=== PATIENT | female | born 1965 | race African-American/Black ===

== ENCOUNTER → 2018-06-16 | Outpatient (CLI) | payer OTHER | END | disposition home or self-care (01) | LOC: CFH 10:27 | PROVIDERS: ATTEND Nurse Practitioner Family | DX: Z12.31 Encounter for screening mammogram for malignant neoplasm of breast (principal) | CPT/HCPCS: 77063; 77067 ==

== ENCOUNTER → 2019-07-28 | Outpatient (CLI) | payer OTHER | END | disposition home or self-care (01) | LOC: CFH 08:34 | PROVIDERS: ATTEND Nurse Practitioner Family | DX: Z12.31 Encounter for screening mammogram for malignant neoplasm of breast (principal) | CPT/HCPCS: 77063; 77067 ==

== ENCOUNTER 2020-01-21 06:48 | Inpatient (IN) | payer OTHER ==
[~2020-01-21] VITALS: Ht 160 cm; Wt 61.2 kg
--- NOTE | 2020-01-21 07:22 | NUR ---
CATERING ASSOCIATE: PT TO ROOM FROM LOBBY VIA WHEELCHAIR AT THIS TIME.
--- NOTE | 2020-01-21 07:35 | NUR ---
FIRST CONTACT WITH PT. PT CAME IN CO PERIUMBICAL PAIN THAT HURTS WORSE WHEN SHE BEARS DOWN FOR A BM. THIS PAIN HAS BEEN GOING ON FOR 4 WEEKS. PT DENIES ANY OTHER SX. PCP HAS A CT SCAN SCHEDULED ON THE . PT'S AOX4. RESPS EVEN AND UNLABORED. BP/SPO2 MONITORS IN PLACE. CALL LIGHT WITHIN REACH,
--- NOTE | 2020-01-21 07:52 | NUR ---
PA AT BEDSIDE TO EVALUATE AT THIS TIME.
[2020-01-21] MEDS ORDERED: SODIUM CHLORIDE 0.9% 1,000ML IVBOLUS ONE (08:00)
[2020-01-21] MEDS ORDERED: ONDANSETRON 2MG/ML, 2ML IVPush ONE (08:00)
[2020-01-21] MEDS ORDERED: SODIUM CHLORIDE FLUSH 10ML SYR IVF ONE (08:00)
--- NOTE | 2020-01-21 08:07 | NUR ---
PT AMB TO BR WITH STEADY GAIT. URINE CUP GIVEN.
[2020-01-21] MEDS ORDERED: MORPHINE SULFATE 4 MG/ML, 1ML ONE ×2 (08:08→12:22)
[2020-01-21] MEDS ORDERED: ONDANSETRON 2MG/ML, 2ML ONE (08:08)
--- NOTE | 2020-01-21 08:12 | NUR ---
PT BACK TO ROOM WITH STEADY GAIT FROM BR.
[2020-01-21] MEDS: MORPHINE SULFATE 4 MG/ML, 1ML IVPush PRN ×2 (08:22→12:25)
--- NOTE | 2020-01-21 08:27 | NUR ---
PT MEDICATED PER EMAR. NS INFUSING AT THIS TIME. PT TOLERATED WELL.
--- NOTE | 2020-01-21 08:31 | NUR ---
URINE COLLECTED AND UA SENT.
[2020-01-21 08:33] LABS: BASOPHILS # (AUTO) 0.03 x10^3/uL (0-0.1); BASOPHILS % (AUTO) 0 % (0-1); EOSINOPHILS # (AUTO) 0.03 x10^3/uL (0-0.4); EOSINOPHILS % (AUTO) 0 % (1-7); LYMPHOCYTES # (AUTO) 0.77 x10^3/uL (1-3.4); LYMPHOCYTES % (AUTO) 6 % (22-44); MD NO; MEAN CORPUSCULAR HEMOGLOBIN 29.9 pg (27.0-34.8); MEAN CORPUSCULAR HGB CONC 32.7 g/dL (32.4-35.8); MEAN CORPUSCULAR VOLUME 91.4 fL (80-100); MEAN PLATELET VOLUME 6.3 fL (7.4-10.4); MONOCYTES # (AUTO) 0.83 x10^3/uL (0.2-0.8); MONOCYTES % (AUTO) 6 % (2-9); NEUTROPHILS # (AUTO) 11.28 x10^3/uL (1.8-6.8); NEUTROPHILS % (AUTO) 87 % (42-75); PLATELET COUNT 485 x10^3/uL (130-400); RED BLOOD COUNT 4.54 x10^6/uL (3.82-5.3); RED CELL DISTRIBUTION WIDTH 13.4 % (9.6-15.2)
[2020-01-21 08:39] LABS: ALANINE AMINOTRANSFERASE 24 U/L (12-78); ALBUMIN 3.4 g/dL (3.4-5.0); ANION GAP 6 mmol/L (5-15); CHLORIDE 91 mmol/L (98-107)
[2020-01-21 08:42] LABS: ALKALINE PHOSPHATASE 113 U/L (45-117); BILIRUBIN,TOTAL 0.5 mg/dL (0.2-1.0); CREATININE 1.23 mg/dL (0.55-1.02); TOTAL PROTEIN 8.6 g/dL (6.4-8.2)
[2020-01-21 08:43] LABS: MICROSCOPIC INDICATED
--- NOTE | 2020-01-21 08:57 | NUR ---
PT SLEEPING IN [facility]. RESPS EVEN AND UNLABORED. BP/SPO2 MONITORS IN PLACE. CALL LIGHT WITHIN REACH.
--- NOTE | 2020-01-21 09:17 | NUR ---
PT BACK TO ROOM FROM CT AT THIS TIME.
[2020-01-21] MEDS ORDERED: OMNIPAQUE 350 MG/ML, 100ML BOTTLE ONE (09:25)
[2020-01-21] MEDS ORDERED: LEVO112T2 PO (09:50)
[2020-01-21] MEDS ORDERED: TELM1TAB26 PO (09:52)
[2020-01-21] MEDS ORDERED: PRAV40TA2 PO (09:52)
[2020-01-21] MEDS ORDERED: LEVE500T22 PO (09:52)
[2020-01-21] MEDS ORDERED: CARB200T4 PO (09:53)
--- NOTE | 2020-01-21 09:53 | NUR ---
pt amb to br with steady gait.
--- NOTE | 2020-01-21 10:00 | NUR ---
PT BACK TO ROOM FROM WITH STEADY GAIT. WARM BLANKET GIVEN PER REQUEST.
--- NOTE | 2020-01-21 10:47 | NUR ---
PT SLEEPING IN [facility]. RESPS EVEN AND UNLABORED. BP/SPO2 MONITORS IN PLACE. CALL LIGHT WITHIN REACH.
[2020-01-21] MEDS ORDERED: DOCUSATE 100 MG CAPSULE PO PRN (11:30)
[2020-01-21] MEDS ORDERED: ACETAMINOPHEN 325 MG TABLET PO PRN (11:30)
[2020-01-21] MEDS ORDERED: morphine SULFATE 10 MG/ML, 1ML IVPush PRN (11:30)
[2020-01-21] MEDS ORDERED: ONDANSETRON ODT 4 MG PO PRN (11:30)
[2020-01-21] MEDS ORDERED: hydrALAzine 20 MG/ML, 1ML IVPush PRN (11:30)
[2020-01-21] MEDS ORDERED: BISACODYL 10 MG SUPP PR PRN (11:30)
[2020-01-21] MEDS ORDERED: POLYETHYLENE GLYCOL 17 GM PACKET PO PRN (11:30)
--- NOTE | 2020-01-21 11:32 | NUR ---
THIS RN CALLED FOR REPORT BUT NO ANSWER AT THIS TIME.
--- NOTE | 2020-01-21 11:45 | NUR ---
REPORT GIVEN TO CHRISTIANA CELESTIN. ALL QUESTIONS ANSWERED.
--- NOTE | 2020-01-21 12:40 | NUR ---
BREAK RN NOTE: PT ASSISTED TO BATHROOM TO VOID, BACK IN BED, ATTACHED TO BP AND SPO2 MONITORS. CALL LIGHT IN REACH. PT REPORTS 8/10 ABD PAIN, MEDICATED PER EMAR, TOLERATED WELL. RESPS EVEN AND UNLABORED, SPO2 98-99% ON ROOM AIR. PT REPORTS RELIEF OF PAIN. PT AWAITING TRANSPORT TO MEDICAL FLOOR AT THIS TIME.
[2020-01-21 13:40] VITALS: BP 119/74
[2020-01-21] MEDS: SODIUM CHLORIDE 0.9% 1,000 ML IV SCH ×2 (14:54→21:43)
[2020-01-21] MEDS: CARBAMAZEPINE 200 MG TABLET PO SCH ×3 (14:54→21:40)
[2020-01-21] MEDS: ONDANSETRON 2MG/ML, 2ML IVPush PRN ×2 (15:04→21:39)
[2020-01-21 16:11] LABS: HCT (SEDRATE) 37.9 % (34.6-47.8)
[2020-01-21 16:12] LABS: ANION GAP 12 mmol/L (5-15); CALCIUM 8.6 mg/dL (8.5-10.1); CHLORIDE 97 mmol/L (98-107); CREATININE 0.97 mg/dL (0.55-1.02)
[2020-01-21 16:19] LABS: C-REACTIVE PROTEIN, QUANT 9.7 mg/dL (0.02-0.49)
[2020-01-21 19:01] VITALS: BP 124/82
[2020-01-21] MEDS: LEVETIRACETAM 500 MG TABLET PO SCH ×2 (20:01→21:40)
[2020-01-22] VITALS (10 sets, daily range): BP systolic 116–138; BP diastolic 72–88
[2020-01-22 05:32] LABS: BASOPHILS # (AUTO) 0.02 x10^3/uL (0-0.1); BASOPHILS % (AUTO) 0 % (0-1); EOSINOPHILS # (AUTO) 0.06 x10^3/uL (0-0.4); EOSINOPHILS % (AUTO) 1 % (1-7); LYMPHOCYTES # (AUTO) 0.83 x10^3/uL (1-3.4); LYMPHOCYTES % (AUTO) 7 % (22-44); MD NO; MEAN CORPUSCULAR HEMOGLOBIN 29.9 pg (27.0-34.8); MEAN CORPUSCULAR HGB CONC 32.7 g/dL (32.4-35.8); MEAN CORPUSCULAR VOLUME 91.5 fL (80-100); MEAN PLATELET VOLUME 6.4 fL (7.4-10.4); MONOCYTES # (AUTO) 1.02 x10^3/uL (0.2-0.8); MONOCYTES % (AUTO) 9 % (2-9); NEUTROPHILS # (AUTO) 9.32 x10^3/uL (1.8-6.8); NEUTROPHILS % (AUTO) 83 % (42-75); PLATELET COUNT 457 x10^3/uL (130-400); RED BLOOD COUNT 4.08 x10^6/uL (3.82-5.3); RED CELL DISTRIBUTION WIDTH 13.5 % (9.6-15.2)
[2020-01-22] MEDS: LEVOTHYROXINE 112 MCG TABLET PO SCH (05:33)
[2020-01-22 05:45] LABS: ALBUMIN 2.5 g/dL (3.4-5.0); ANION GAP 7 mmol/L (5-15); CHLORIDE 101 mmol/L (98-107)
[2020-01-22 05:50] LABS: ALANINE AMINOTRANSFERASE 17 U/L (12-78); ALKALINE PHOSPHATASE 89 U/L (45-117); BILIRUBIN,TOTAL 0.4 mg/dL (0.2-1.0); CREATININE 0.99 mg/dL (0.55-1.02); TOTAL PROTEIN 6.6 g/dL (6.4-8.2)
[2020-01-22] MEDS ORDERED: PANTOPRAZOLE 40 MG IV IVPush SCH (07:30)
[2020-01-22] MEDS ORDERED: CHLORHEXIDINE 15 ML UDC ONE (07:44)
[2020-01-22] MEDS: SODIUM CHLORIDE 0.9% 1,000 ML IV SCH ×2 (07:44→21:22)
[2020-01-22] MEDS ORDERED: PROPOFOL 10 MG/ML, 20ML ONE (09:25)
[2020-01-22] MEDS: LEVETIRACETAM 500 MG TABLET PO SCH ×2 (10:29→21:22)
[2020-01-22] MEDS: CARBAMAZEPINE 200 MG TABLET PO SCH ×3 (10:29→21:22)
[2020-01-22] MEDS: OXYcodone IR 5MG TABLET PO PRN ×3 (10:30→21:21)
[2020-01-22] MEDS: SUCRALFATE 1 GM TABLET PO SCH ×2 (11:54→21:22)
[2020-01-22] MEDS: OMEPRAZOLE 20 MG CAPSULE.DR PO SCH (16:00)
[2020-01-22] MEDS ORDERED: GOLYTELY 4,000ML ORAL.SOL PO ONE (16:00)
[2020-01-23 01:25] VITALS: BP 128/84
[2020-01-23] MEDS: OMEPRAZOLE 20 MG CAPSULE.DR PO SCH ×2 (04:33→16:00)
[2020-01-23] MEDS: LEVOTHYROXINE 112 MCG TABLET PO SCH (04:33)
[2020-01-23 06:04] LABS: BASOPHILS # (AUTO) 0.04 x10^3/uL (0-0.1); BASOPHILS % (AUTO) 0 % (0-1); EOSINOPHILS # (AUTO) 0.04 x10^3/uL (0-0.4); EOSINOPHILS % (AUTO) 0 % (1-7); LYMPHOCYTES # (AUTO) 0.99 x10^3/uL (1-3.4); LYMPHOCYTES % (AUTO) 9 % (22-44); MD NO; MEAN CORPUSCULAR HEMOGLOBIN 29.6 pg (27.0-34.8); MEAN CORPUSCULAR HGB CONC 32.7 g/dL (32.4-35.8); MEAN CORPUSCULAR VOLUME 90.8 fL (80-100); MEAN PLATELET VOLUME 7.1 fL (7.4-10.4); MONOCYTES # (AUTO) 0.83 x10^3/uL (0.2-0.8); MONOCYTES % (AUTO) 7 % (2-9); NEUTROPHILS # (AUTO) 9.69 x10^3/uL (1.8-6.8); NEUTROPHILS % (AUTO) 84 % (42-75); PLATELET COUNT 458 x10^3/uL (130-400); RED BLOOD COUNT 4.07 x10^6/uL (3.82-5.3); RED CELL DISTRIBUTION WIDTH 13.5 % (9.6-15.2)
[2020-01-23 06:12] LABS: ANION GAP 10 mmol/L (5-15); CALCIUM 7.9 mg/dL (8.5-10.1); CHLORIDE 103 mmol/L (98-107)
[2020-01-23 06:14] LABS: CREATININE 0.85 mg/dL (0.55-1.02)
[2020-01-23 06:34] VITALS: BP 116/53
[2020-01-23] MEDS ORDERED: CHLORHEXIDINE 15 ML UDC ONE (09:07)
[2020-01-23] MEDS ORDERED: CHLORHEXIDINE 15 ML UDC MM STA (09:09)
[2020-01-23] MEDS ORDERED: PROPOFOL 10 MG/ML, 20ML ONE (09:38)
[2020-01-23] MEDS ORDERED: ACETAMINOPHEN 325 MG TABLET PO PRN (10:00)
[2020-01-23] MEDS ORDERED: ONDANSETRON 2MG/ML, 2ML IVPush PRN (10:00)
[2020-01-23] MEDS: SUCRALFATE 1 GM TABLET PO SCH ×2 (11:32→20:49)
[2020-01-23] MEDS: LEVETIRACETAM 500 MG TABLET PO SCH ×2 (11:32→20:49)
[2020-01-23] MEDS: CARBAMAZEPINE 200 MG TABLET PO SCH ×3 (11:33→20:49)
[2020-01-23] MEDS: OXYcodone IR 5MG TABLET PO PRN ×2 (11:36→16:18)
[2020-01-23 12:09] VITALS: BP 137/87
[2020-01-23] MEDS: ONDANSETRON 2MG/ML, 2ML IVPush PRN (12:32)
[2020-01-23] MEDS: SODIUM CHLORIDE 0.9% 1,000 ML IV SCH (16:15)
[2020-01-23 19:12] VITALS: BP 120/73
[2020-01-24 00:54] VITALS: BP 117/74
[2020-01-24] MEDS: LEVOTHYROXINE 112 MCG TABLET PO SCH (05:52)
[2020-01-24] MEDS: OMEPRAZOLE 20 MG CAPSULE.DR PO SCH ×2 (05:52→16:00)
[2020-01-24] MEDS: SODIUM CHLORIDE 0.9% 1,000 ML IV SCH (05:57)
[2020-01-24 06:03] LABS: BASOPHILS # (AUTO) 0.02 x10^3/uL (0-0.1); BASOPHILS % (AUTO) 0 % (0-1); EOSINOPHILS # (AUTO) 0.17 x10^3/uL (0-0.4); EOSINOPHILS % (AUTO) 2 % (1-7); LYMPHOCYTES # (AUTO) 1.04 x10^3/uL (1-3.4); LYMPHOCYTES % (AUTO) 9 % (22-44); MD NO; MEAN CORPUSCULAR HEMOGLOBIN 29.7 pg (27.0-34.8); MEAN CORPUSCULAR HGB CONC 32.7 g/dL (32.4-35.8); MEAN CORPUSCULAR VOLUME 90.8 fL (80-100); MEAN PLATELET VOLUME 6.9 fL (7.4-10.4); MONOCYTES # (AUTO) 0.86 x10^3/uL (0.2-0.8); MONOCYTES % (AUTO) 8 % (2-9); NEUTROPHILS # (AUTO) 9.07 x10^3/uL (1.8-6.8); NEUTROPHILS % (AUTO) 81 % (42-75); PLATELET COUNT 450 x10^3/uL (130-400); RED BLOOD COUNT 3.79 x10^6/uL (3.82-5.3); RED CELL DISTRIBUTION WIDTH 13.6 % (9.6-15.2)
[2020-01-24 06:12] LABS: ALBUMIN 2.2 g/dL (3.4-5.0); ANION GAP 6 mmol/L (5-15); CALCIUM 7.8 mg/dL (8.5-10.1); CHLORIDE 105 mmol/L (98-107)
[2020-01-24 06:17] LABS: ALANINE AMINOTRANSFERASE 15 U/L (12-78); ALKALINE PHOSPHATASE 83 U/L (45-117); BILIRUBIN,TOTAL 0.5 mg/dL (0.2-1.0); CREATININE 0.91 mg/dL (0.55-1.02); TOTAL PROTEIN 6.2 g/dL (6.4-8.2)
[2020-01-24 07:42] VITALS: BP 112/73
[2020-01-24] MEDS: SUCRALFATE 1 GM TABLET PO SCH (09:49)
[2020-01-24] MEDS: LEVETIRACETAM 500 MG TABLET PO SCH (09:49)
[2020-01-24] MEDS: CARBAMAZEPINE 200 MG TABLET PO SCH ×2 (09:49→17:30)
[2020-01-24 12:06] VITALS: BP 134/82
[2020-01-24] MEDS ORDERED: OXYC5TAB3 PO (15:55)
[2020-01-24] MEDS ORDERED: DOCU100C33 PO (15:55)
[2020-01-24] MEDS ORDERED: SUCR1TAB33 PO (15:55)
[2020-01-24] MEDS ORDERED: SIME125T PO (15:55)
[2020-01-24] MEDS ORDERED: OMEP-110 PO (15:55)
[2020-01-24] MEDS ORDERED: SIMETHICONE 125 MG CHEW TAB PO SCH (16:00)
[2020-01-24] MEDS ORDERED: DOCUSATE 100 MG CAPSULE PO SCH (21:00)
== END 2020-01-24 18:53 | disposition home or self-care (01) | DRG 391 ==
LOC: ED 07:34 → EDIP 10:39 → 3N 11:30
PROVIDERS: ADMIT Internal Medicine Infectious Disease; ATTEND Internal Medicine Infectious Disease
PROC: 0DJ08ZZ Inspection of Upper Intestinal Tract, Via Natural or Artificial Opening Endoscopic (ICD-10-PCS; principal; 2020-01-22 09:00)
PROC: 0DJD8ZZ Inspection of Lower Intestinal Tract, Via Natural or Artificial Opening Endoscopic (ICD-10-PCS; 2020-01-23)
DX: R10.9 Unspecified abdominal pain (principal); N17.0 Acute kidney failure with tubular necrosis; E87.1 Hypo-osmolality and hyponatremia; K20.9 Esophagitis, unspecified; G40.909 Epilepsy, unspecified, not intractable, without status epilepticus; I10 Essential (primary) hypertension; E86.0 Dehydration; R13.10 Dysphagia, unspecified; D18.09 Hemangioma of other sites; K44.9 Diaphragmatic hernia without obstruction or gangrene; D72.829 Elevated white blood cell count, unspecified; E78.5 Hyperlipidemia, unspecified; E03.9 Hypothyroidism, unspecified; Z90.49 Acquired absence of other specified parts of digestive tract; Z90.89 Acquired absence of other organs; Z90.710 Acquired absence of both cervix and uterus; Z88.0 Allergy status to penicillin; Z80.7 Family history of other malignant neoplasms of lymphoid, hematopoietic and related tissues; Z80.0 Family history of malignant neoplasm of digestive organs; Q63.1 Lobulated, fused and horseshoe kidney
CPT/HCPCS: 36415; 71046; 74018; 74177; 76830; 80048; 80053; 81001; 82378; 83605; 83690; 83735; 84100; 84145; 84443; 85025; 85651; 86140; 86301; 87491; 87591; 87635; 96361; 96374; G0378; J2405; J2704; Q9967; J2270; J7030

== ENCOUNTER 2020-01-28 07:10 | Inpatient (IN) | payer OTHER ==
[~2020-01-28] VITALS: Ht 160 cm; Wt 56.5 kg
[~2020-01-28 07:10] MED LIST: CARB200T4 PO; DOCU100C33 PO; LEVE500T22 PO; LEVO112T2 PO; OMEP-110 PO; OXYC5TAB3 PO; PRAV40TA2 PO; SIME125T PO; SUCR1TAB33 PO; TELM1TAB26 PO
[2020-01-28] MEDS ORDERED: DICYCLOMINE 20 MG TABLET ONE (07:42)
[2020-01-28] MEDS ORDERED: MAALOX/HYOSCYAMINE/LIDOCAINE 45 ML BTL ONE (07:42)
[2020-01-28] MEDS ORDERED: DICYCLOMINE 20 MG TABLET PO ONE (08:00)
[2020-01-28] MEDS ORDERED: MAALOX/HYOSCYAMINE/LIDOCAINE 45 ML BTL PO ONE (08:00)
--- NOTE | 2020-01-28 08:12 | NUR ---
SEEN 01/20 AND ADDMITTED. CO ALL OVER ABD PAIN AND BLOATING TODAY. NAUSEA. DENIES VOM / DIARRHEA. PATIENT STATES "ITS LIKE PUSS COMING OUT WHEN I POOP, I TOOK PICTURES SO THE DOCTOR CAN SEE IT" DENIES BLOOD IN STOOL. PATIENT IN BED, CALL LIGHT IN REACH, SIDE RAILS UP X2. WENT OVER PLAN OF CARE FROM ORDER LIST, AGREES TO POC. REPORTS FEELING BETTER ATER PO MEDS
[2020-01-28 08:20] LABS: BASOPHILS # (AUTO) 0.01 x10^3/uL (0-0.1); BASOPHILS % (AUTO) 0 % (0-1); EOSINOPHILS # (AUTO) 0.08 x10^3/uL (0-0.4); EOSINOPHILS % (AUTO) 1 % (1-7); LYMPHOCYTES # (AUTO) 0.73 x10^3/uL (1-3.4); LYMPHOCYTES % (AUTO) 7 % (22-44); MD NO; MEAN CORPUSCULAR HEMOGLOBIN 29.9 pg (27.0-34.8); MEAN CORPUSCULAR HGB CONC 32.5 g/dL (32.4-35.8); MEAN CORPUSCULAR VOLUME 91.8 fL (80-100); MEAN PLATELET VOLUME 6.6 fL (7.4-10.4); MONOCYTES % (AUTO) 5 % (2-9); NEUTROPHILS # (AUTO) 9.08 x10^3/uL (1.8-6.8); NEUTROPHILS % (AUTO) 87 % (42-75); PLATELET COUNT 560 x10^3/uL (130-400); RED BLOOD COUNT 3.89 x10^6/uL (3.82-5.3); RED CELL DISTRIBUTION WIDTH 13.3 % (9.6-15.2)
--- NOTE | 2020-01-28 08:21 | NUR ---
URINE CUP GIVEN. PATIENT IS SLEEPING IN ROOM.
[2020-01-28 08:32] LABS: ALANINE AMINOTRANSFERASE 23 U/L (12-78); ALBUMIN 2.7 g/dL (3.4-5.0); ANION GAP 5 mmol/L (5-15); CALCIUM 8.5 mg/dL (8.5-10.1); CHLORIDE 103 mmol/L (98-107); CREATININE 1.05 mg/dL (0.55-1.02)
[2020-01-28 08:35] LABS: ALKALINE PHOSPHATASE 78 U/L (45-117); BILIRUBIN,TOTAL 0.2 mg/dL (0.2-1.0); TOTAL PROTEIN 6.8 g/dL (6.4-8.2)
[2020-01-28] MEDS ORDERED: SODIUM CHLORIDE 0.9% 1,000 ML IV ONE (08:43)
[2020-01-28] MEDS ORDERED: ONDANSETRON 2MG/ML, 2ML ONE (08:58)
[2020-01-28] MEDS ORDERED: MORPHINE SULFATE 4 MG/ML, 1ML ONE (08:59)
[2020-01-28] MEDS ORDERED: SODIUM CHLORIDE FLUSH 10ML SYR IVF ONE (09:00)
[2020-01-28] MEDS ORDERED: ONDANSETRON 2MG/ML, 2ML IVPush ONE (09:00)
[2020-01-28] MEDS ORDERED: MORPHINE SULFATE 4 MG/ML, 1ML IVPush PRN (09:00)
[2020-01-28 09:29] LABS: MICROSCOPIC NOT IND
[2020-01-28 10:20] LABS: HCT (SEDRATE) 35.7 % (34.6-47.8)
--- NOTE | 2020-01-28 10:27 | NUR ---
pt back from ct, ambulated to restroom with assistance
[2020-01-28] MEDS ORDERED: OMNIPAQUE 350 MG/ML, 100ML BOTTLE ONE (10:37)
[2020-01-28] MEDS ORDERED: LABETALOL 5MG/ML, 20ML IVPush PRN (12:00)
[2020-01-28] MEDS ORDERED: TEMAZEPAM 15 MG CAPSULE PO PRN (12:00)
[2020-01-28] MEDS ORDERED: morphine SULFATE 10 MG/ML, 1ML IVPush PRN (12:00)
[2020-01-28] MEDS ORDERED: ACETAMINOPHEN 325 MG TABLET PO PRN (12:00)
[2020-01-28] MEDS ORDERED: ONDANSETRON ODT 4 MG PO PRN (12:00)
[2020-01-28] MEDS ORDERED: ENALAPRILAT 1.25 MG/ML, 2ML IVPush PRN (12:00)
[2020-01-28 12:14] VITALS: BP 184/119
[2020-01-28] MEDS: HYDROCHLOROTHIAZIDE 25 MG TABLET PO SCH (13:11)
[2020-01-28] MEDS: LOSARTAN 100 MG TAB PO SCH (13:11)
[2020-01-28 13:13] VITALS: BP 184/119
[2020-01-28 14:00] VITALS: BP 138/89
[2020-01-28] MEDS: OMEPRAZOLE 20 MG CAPSULE.DR PO SCH (16:33)
[2020-01-28] MEDS: CARBAMAZEPINE 200 MG TABLET PO SCH ×2 (16:33→20:49)
[2020-01-28] MEDS: HYDROcodone/APAP 5/325 TABLET PO PRN (18:33)
[2020-01-28 19:47] VITALS: BP 135/86
[2020-01-28] MEDS: SUCRALFATE 1 GM TABLET PO SCH (20:49)
[2020-01-28] MEDS: LEVETIRACETAM 500 MG TABLET PO SCH (20:49)
[2020-01-28] MEDS: PRAVASTATIN 40 MG TABLET PO SCH (20:49)
[2020-01-29] MEDS: HYDROcodone/APAP 5/325 TABLET PO PRN ×5 (02:07→21:45)
[2020-01-29 02:39] VITALS: BP 142/87
[2020-01-29] MEDS: LEVOTHYROXINE 112 MCG TABLET PO SCH (05:58)
[2020-01-29] MEDS: CARBAMAZEPINE 200 MG TABLET PO SCH ×4 (05:58→21:15)
[2020-01-29] MEDS: OMEPRAZOLE 20 MG CAPSULE.DR PO SCH ×2 (05:58→16:08)
[2020-01-29 06:56] VITALS: BP 143/88
[2020-01-29 07:35] LABS: BASOPHILS # (AUTO) 0.05 x10^3/uL (0-0.1); BASOPHILS % (AUTO) 1 % (0-1); EOSINOPHILS # (AUTO) 0.16 x10^3/uL (0-0.4); EOSINOPHILS % (AUTO) 1 % (1-7); LYMPHOCYTES # (AUTO) 1.21 x10^3/uL (1-3.4); LYMPHOCYTES % (AUTO) 11 % (22-44); MD NO; MEAN CORPUSCULAR HEMOGLOBIN 29.7 pg (27.0-34.8); MEAN CORPUSCULAR HGB CONC 32.3 g/dL (32.4-35.8); MEAN CORPUSCULAR VOLUME 91.9 fL (80-100); MEAN PLATELET VOLUME 6.5 fL (7.4-10.4); MONOCYTES # (AUTO) 0.78 x10^3/uL (0.2-0.8); MONOCYTES % (AUTO) 7 % (2-9); NEUTROPHILS # (AUTO) 9.09 x10^3/uL (1.8-6.8); NEUTROPHILS % (AUTO) 81 % (42-75); PLATELET COUNT 551 x10^3/uL (130-400); RED BLOOD COUNT 3.93 x10^6/uL (3.82-5.3); RED CELL DISTRIBUTION WIDTH 13.7 % (9.6-15.2)
[2020-01-29 07:45] LABS: ALANINE AMINOTRANSFERASE 22 U/L (12-78); ALBUMIN 2.5 g/dL (3.4-5.0); ANION GAP 7 mmol/L (5-15); CALCIUM 8.4 mg/dL (8.5-10.1); CHLORIDE 99 mmol/L (98-107); CREATININE 0.99 mg/dL (0.55-1.02)
[2020-01-29 07:48] LABS: ALKALINE PHOSPHATASE 76 U/L (45-117); BILIRUBIN,TOTAL 0.2 mg/dL (0.2-1.0); TOTAL PROTEIN 6.6 g/dL (6.4-8.2)
[2020-01-29] MEDS: LOSARTAN 100 MG TAB PO SCH (08:20)
[2020-01-29] MEDS: SUCRALFATE 1 GM TABLET PO SCH ×2 (08:20→21:15)
[2020-01-29] MEDS: SENNA/DOCUSATE TABLET PO SCH (08:20)
[2020-01-29] MEDS: LEVETIRACETAM 500 MG TABLET PO SCH ×2 (08:20→21:15)
[2020-01-29] MEDS: HYDROCHLOROTHIAZIDE 25 MG TABLET PO SCH (08:20)
[2020-01-29] MEDS: ONDANSETRON 2MG/ML, 2ML IVPush PRN ×2 (08:21→20:59)
[2020-01-29] MEDS ORDERED: OMNIPAQUE 350 MG/ML, 75ML BOTTLE ONE (10:55)
[2020-01-29 13:05] VITALS: BP 159/106
[2020-01-29 13:50] VITALS: BP 133/80
[2020-01-29 18:55] VITALS: BP 152/93
[2020-01-29] MEDS: PRAVASTATIN 40 MG TABLET PO SCH (21:15)
[2020-01-30 01:57] VITALS: BP 115/75
[2020-01-30 05:23] LABS: BASOPHILS # (AUTO) 0.03 x10^3/uL (0-0.1); BASOPHILS % (AUTO) 0 % (0-1); EOSINOPHILS % (AUTO) 1 % (1-7); LYMPHOCYTES # (AUTO) 1.31 x10^3/uL (1-3.4); LYMPHOCYTES % (AUTO) 12 % (22-44); MD NO; MEAN CORPUSCULAR HEMOGLOBIN 29.6 pg (27.0-34.8); MEAN CORPUSCULAR HGB CONC 32.4 g/dL (32.4-35.8); MEAN CORPUSCULAR VOLUME 91.5 fL (80-100); MONOCYTES # (AUTO) 0.69 x10^3/uL (0.2-0.8); MONOCYTES % (AUTO) 6 % (2-9); NEUTROPHILS # (AUTO) 8.66 x10^3/uL (1.8-6.8); NEUTROPHILS % (AUTO) 80 % (42-75); PLATELET COUNT 532 x10^3/uL (130-400); RED CELL DISTRIBUTION WIDTH 13.8 % (9.6-15.2)
[2020-01-30 05:31] LABS: ALBUMIN 2.4 g/dL (3.4-5.0); ANION GAP 8 mmol/L (5-15); CALCIUM 8.5 mg/dL (8.5-10.1); CHLORIDE 95 mmol/L (98-107)
[2020-01-30 05:36] LABS: ALANINE AMINOTRANSFERASE 19 U/L (12-78); ALKALINE PHOSPHATASE 82 U/L (45-117); BILIRUBIN,TOTAL 0.2 mg/dL (0.2-1.0); CREATININE 1.02 mg/dL (0.55-1.02); TOTAL PROTEIN 6.4 g/dL (6.4-8.2)
[2020-01-30] MEDS: CARBAMAZEPINE 200 MG TABLET PO SCH ×4 (06:00→22:11)
[2020-01-30] MEDS: LEVOTHYROXINE 112 MCG TABLET PO SCH (06:00)
[2020-01-30 07:48] VITALS: BP 147/89
[2020-01-30] MEDS: LOSARTAN 100 MG TAB PO SCH (11:21)
[2020-01-30] MEDS: OMEPRAZOLE 20 MG CAPSULE.DR PO SCH ×2 (11:21→15:32)
[2020-01-30] MEDS: LEVETIRACETAM 500 MG TABLET PO SCH ×2 (11:21→22:10)
[2020-01-30] MEDS: HYDROcodone/APAP 5/325 TABLET PO PRN ×3 (11:22→22:10)
[2020-01-30] MEDS: HYDROCHLOROTHIAZIDE 25 MG TABLET PO SCH (11:22)
[2020-01-30] MEDS: SENNA/DOCUSATE TABLET PO SCH (11:22)
[2020-01-30] MEDS: SUCRALFATE 1 GM TABLET PO SCH ×2 (11:24→22:10)
[2020-01-30 14:01] VITALS: BP 139/88
[2020-01-30] MEDS: POLYETHYLENE GLYCOL 17 GM PACKET PO PRN (15:39)
[2020-01-30 19:20] VITALS: BP 115/74
[2020-01-30] MEDS: ONDANSETRON 2MG/ML, 2ML IVPush PRN (20:40)
[2020-01-30] MEDS: PRAVASTATIN 40 MG TABLET PO SCH (22:11)
[2020-01-31] MEDS: ONDANSETRON 2MG/ML, 2ML IVPush PRN (04:31)
[2020-01-31 04:36] VITALS: BP 115/86
[2020-01-31] MEDS: CARBAMAZEPINE 200 MG TABLET PO SCH ×2 (06:09→12:19)
[2020-01-31] MEDS: OMEPRAZOLE 20 MG CAPSULE.DR PO SCH (06:09)
[2020-01-31] MEDS: LEVOTHYROXINE 112 MCG TABLET PO SCH (06:09)
[2020-01-31 07:21] VITALS: BP 105/64
[2020-01-31] MEDS: POLYETHYLENE GLYCOL 17 GM PACKET PO PRN (08:35)
[2020-01-31] MEDS: LOSARTAN 100 MG TAB PO SCH (08:35)
[2020-01-31] MEDS: HYDROCHLOROTHIAZIDE 25 MG TABLET PO SCH (08:36)
[2020-01-31] MEDS: SUCRALFATE 1 GM TABLET PO SCH (08:36)
[2020-01-31] MEDS: SENNA/DOCUSATE TABLET PO SCH (08:36)
[2020-01-31] MEDS: LEVETIRACETAM 500 MG TABLET PO SCH (08:37)
[2020-01-31] MEDS: HYDROcodone/APAP 5/325 TABLET PO PRN ×2 (08:40→13:49)
[2020-01-31 14:22] VITALS: BP 131/85
[2020-01-31] MEDS ORDERED: ONDA4TAB13 PO (15:30)
[2020-01-31] MEDS ORDERED: BISA10SU54 PR (15:30)
[2020-01-31] MEDS ORDERED: POLY17PO5 PO (15:30)
[2020-01-31] MEDS ORDERED: HYDR-3237 PO (15:30)
== END 2020-01-31 17:35 | disposition home or self-care (01) | DRG 442 ==
LOC: ED 07:38 → EDIP 11:46 → 4NE 11:52 → 3WST 01-29 17:17
PROVIDERS: ADMIT Internal Medicine; ATTEND Internal Medicine
PROC: 0DBU3ZX Excision of Omentum, Percutaneous Approach, Diagnostic (ICD-10-PCS; principal; 2020-01-30)
DX: R16.0 Hepatomegaly, not elsewhere classified (principal); R18.8 Other ascites; K66.9 Disorder of peritoneum, unspecified; E03.9 Hypothyroidism, unspecified; I10 Essential (primary) hypertension; E78.5 Hyperlipidemia, unspecified; G40.909 Epilepsy, unspecified, not intractable, without status epilepticus; K44.9 Diaphragmatic hernia without obstruction or gangrene; K21.9 Gastro-esophageal reflux disease without esophagitis; K20.9 Esophagitis, unspecified; C80.1 Malignant (primary) neoplasm, unspecified; Z90.710 Acquired absence of both cervix and uterus; Z90.49 Acquired absence of other specified parts of digestive tract; Z90.89 Acquired absence of other organs; Z79.899 Other long term (current) drug therapy; Z88.0 Allergy status to penicillin
CPT/HCPCS: 36415; 49180; 71260; 74177; 77012; 80053; 81003; 83690; 85025; 85651; 86140; 86304; 88305; 88341; 88342; 96361; 96374; 96375; 99156; G0378; J2405; Q9967; J2270; J7030

== ENCOUNTER → 2020-03-08 | Outpatient (CLI) | payer OTHER ==
[~2020-03-08] MED LIST changes: +BISA10SU54 PR; +HYDR-3237 PO; +ONDA4TAB13 PO; +POLY17PO5 PO
== END | disposition home or self-care (01) ==
LOC: RAD 12:39
PROVIDERS: ATTEND Internal Medicine
DX: C78.7 Secondary malignant neoplasm of liver and intrahepatic bile duct (principal); C80.1 Malignant (primary) neoplasm, unspecified
CPT/HCPCS: 76700

== ENCOUNTER → 2020-03-22 | Outpatient (CLI) | payer OTHER ==
[~2020-03-22] MED LIST changes: +LIDOCAINE 1%, 10ML ONE
== END | disposition home or self-care (01) ==
LOC: RAD 14:14
PROVIDERS: ATTEND Internal Medicine
DX: R18.0 Malignant ascites (principal); C80.1 Malignant (primary) neoplasm, unspecified
CPT/HCPCS: 49083; J3490

== ENCOUNTER → 2020-03-27 | Outpatient (CLI) | payer OTHER ==
[~2020-03-27] MED LIST changes: -LIDOCAINE 1%, 10ML ONE
== END | disposition home or self-care (01) ==
LOC: RAD 11:56
PROVIDERS: ATTEND Internal Medicine
DX: C80.1 Malignant (primary) neoplasm, unspecified (principal)
CPT/HCPCS: 36573; C1751

== ENCOUNTER 2020-03-30 10:02 | Outpatient (CLI) | payer OTHER ==
[2020-03-30] MEDS ORDERED: LIDOCAINE 1%, 10ML ONE (10:16)
== END 2020-03-30 23:59 | disposition home or self-care (01) ==
LOC: RAD 10:02
PROVIDERS: ATTEND Internal Medicine
DX: C80.1 Malignant (primary) neoplasm, unspecified (principal)
CPT/HCPCS: 49083; J3490

== ENCOUNTER 2020-05-10 16:27 | Inpatient (IN) | payer OTHER ==
[~2020-05-10] VITALS: Ht 160 cm; Wt 54.5 kg
--- NOTE | 2020-05-10 16:39 | NUR ---
PER ONC RN, OK TO USE PICC LINE IN LEFT ARM, D/T LACK OF IV ACCESS. PT LEFT ARM SWOLLEN AND POSSIBLE DVT.
--- NOTE | 2020-05-10 17:05 | NUR ---
EWELINA WANTS LABS DRAWN BY COMMUNICATIONS PROJECT MANAGER, NOT FROM PICC LINE.
[2020-05-10 18:25] LABS: ALBUMIN 1.4 g/dL (3.4-5.0); ANION GAP 8 mmol/L (5-15); CALCIUM 6.7 mg/dL (8.5-10.1); CHLORIDE 107 mmol/L (98-107); INTERNATIONAL NORMALIZED RATIO 1.09 (0.93-1.1); PROTHROMBIN TIME 11.2 Seconds (9.6-11.5)
[2020-05-10 18:29] LABS: ALANINE AMINOTRANSFERASE 13 U/L (12-78); ALKALINE PHOSPHATASE 81 U/L (45-117); BILIRUBIN,TOTAL 0.3 mg/dL (0.2-1.0); CREATININE 0.34 mg/dL (0.55-1.02); TOTAL PROTEIN 4.2 g/dL (6.4-8.2)
--- NOTE | 2020-05-10 18:33 | NUR ---
BREAK RN: PATIENT RESTING ON GURNEY, RESPIRATIONS EVEN AND UNLABORED, [place] AT THIS TIME. CALL LIGHT IN REACH, FAMILY IN ROOM
[2020-05-10 18:39] LABS: MEAN CORPUSCULAR HEMOGLOBIN 30.7 pg (27.0-34.8); MEAN CORPUSCULAR HGB CONC 33.2 g/dL (32.4-35.8); MEAN PLATELET VOLUME 8.3 fL (7.4-10.4); PLATELET COUNT 523 x10^3/uL (130-400); RED BLOOD COUNT 3.06 x10^6/uL (3.82-5.3); RED CELL DISTRIBUTION WIDTH 19.8 % (9.6-15.2)
[2020-05-10] MEDS ORDERED: OMNIPAQUE 350 MG/ML, 100ML BOTTLE ONE (19:04)
[2020-05-10 19:07] LABS: MD YES
[2020-05-10 19:14] LABS: BAND#(MANUAL) 0.43 x10^3/uL; BANDS%(MANUAL) 17 % (0-7); LYMPH#(MANUAL) 0.48 x10^3/uL (1-3.4); LYMPHS% (MANUAL) 19 % (22-44); MONOS#(MANUAL) 0.48 x10^3/uL (0.3-2.7); MONOS% (MANUAL) 19 % (2-9); REACTIVE LYMPHS # (MANUAL) 0.05 x10^3/uL (0-0); REACTIVE LYMPHS % (MANUAL) 2 % (0-0); SEG#(MANUAL) 1.08 x10^3/uL (1.8-6.8); SEGS% (MANUAL) 43 % (42-75)
[2020-05-10 19:15] LABS: POLYCHROMASIA 1+
[2020-05-10 19:16] LABS: PAPPENHEIMER BODIES 1+; TARGET CELLS 1+
[2020-05-10 19:17] LABS: OVALOCYTES 1+
[2020-05-10 19:18] LABS: <PLATELET ESTIMATE> INCREASED; LARGE PLATELETS 1+; SPHEROCYTES 1+
--- NOTE | 2020-05-10 19:36 | NUR ---
ALL RESULTS ARE BACK AT THIS TIME. CHART UP FOR RECHECK.
[2020-05-10] MEDS ORDERED: METOCLOPRAMIDE 5 MG/ML, 2ML IVPush ONE (20:00)
[2020-05-10] MEDS ORDERED: MORPHINE SULFATE 4 MG/ML, 1ML IVPush ONE (20:00)
[2020-05-10] MEDS ORDERED: BENZOCAINE AEROSOL SPRAY 20%, 60ML ONE (20:10)
--- NOTE | 2020-05-10 20:17 | NUR ---
PT AND REFUSE NG TUBE AT THIS TIME, THEY WOULD LIKE TO SPEAK TO HOSPITALIST TO GO OVER ALL OPTIONS. REPORT GIVEN TO MIRA CELESTIN
[2020-05-10] MEDS ORDERED: SODIUM CHLORIDE 0.9% 1,000 ML IV SCH (20:46)
[2020-05-10 21:10] VITALS: BP 100/71
[2020-05-10] MEDS: LEVETIRACETAM 500 MG in SODIUM CHLORIDE 0.9% 100 ML IV SCH (22:20)
[2020-05-10] MEDS: ONDANSETRON 2MG/ML, 2ML IVPush PRN (22:45)
[2020-05-10] MEDS: morphine SULFATE 10 MG/ML, 1ML IVPush PRN (22:46)
[2020-05-10] MEDS: HEPARIN 5,000 UNITS/ML, 1ML SQ SCH (22:46)
[2020-05-10 23:11] LABS: MICROSCOPIC INDICATED
[2020-05-11] MEDS: BISACODYL 10 MG SUPP PR SCH ×2 (00:02→09:00)
[2020-05-11] MEDS: morphine SULFATE 10 MG/ML, 1ML IVPush PRN ×4 (00:28→18:49)
[2020-05-11 01:08] VITALS: BP 112/83
[2020-05-11 06:02] LABS: ANION GAP 6 mmol/L (5-15); CHLORIDE 106 mmol/L (98-107); CREATININE 0.34 mg/dL (0.55-1.02)
[2020-05-11] MEDS: HEPARIN 5,000 UNITS/ML, 1ML SQ SCH ×3 (06:25→22:27)
[2020-05-11] MEDS: ONDANSETRON 2MG/ML, 2ML IVPush PRN ×2 (06:57→18:52)
[2020-05-11 07:14] LABS: MD YES; MEAN CORPUSCULAR HEMOGLOBIN 30.3 pg (27.0-34.8); MEAN CORPUSCULAR HGB CONC 32.3 g/dL (32.4-35.8); MEAN PLATELET VOLUME 8.1 fL (7.4-10.4); PLATELET COUNT 492 x10^3/uL (130-400); RED BLOOD COUNT 3.12 x10^6/uL (3.82-5.3); RED CELL DISTRIBUTION WIDTH 19.9 % (9.6-15.2)
[2020-05-11 07:25] LABS: BAND#(MANUAL) 0.14 x10^3/uL; BANDS%(MANUAL) 9 % (0-7); LYMPH#(MANUAL) 0.39 x10^3/uL (1-3.4); LYMPHS% (MANUAL) 26 % (22-44); MONOS#(MANUAL) 0.18 x10^3/uL (0.3-2.7); MONOS% (MANUAL) 12 % (2-9); REACTIVE LYMPHS # (MANUAL) 0.03 x10^3/uL (0-0); REACTIVE LYMPHS % (MANUAL) 2 % (0-0); SEG#(MANUAL) 0.77 x10^3/uL (1.8-6.8); SEGS% (MANUAL) 51 % (42-75)
[2020-05-11 07:30] LABS: <PLATELET ESTIMATE> INCREASED; ANISOCYTOSIS 1+; BASOPHILLIC STIPPLING 1+; PAPPENHEIMER BODIES 1+; POLYCHROMASIA 1+
[2020-05-11 07:31] LABS: <PLT MORPHOLOGY> NORMAL PLT MORPH
[2020-05-11 07:55] VITALS: BP 101/79
[2020-05-11] MEDS: LEVETIRACETAM 500 MG in SODIUM CHLORIDE 0.9% 100 ML IV SCH ×2 (10:38→22:13)
[2020-05-11] MEDS: D5%-0.45NACL+KCL 20MEQ 1,000 ML IV SCH ×2 (11:37→22:10)
[2020-05-11 14:23] VITALS: BP 107/76
[2020-05-11 18:58] VITALS: BP 113/79
[2020-05-12 00:07] VITALS: BP 95/72
[2020-05-12] MEDS: morphine SULFATE 10 MG/ML, 1ML IVPush PRN ×5 (00:12→22:38)
[2020-05-12] MEDS: ONDANSETRON 2MG/ML, 2ML IVPush PRN ×3 (05:57→18:15)
[2020-05-12] MEDS: HEPARIN 5,000 UNITS/ML, 1ML SQ SCH ×3 (06:05→22:34)
[2020-05-12 06:07] LABS: ALBUMIN 1.3 g/dL (3.4-5.0); ANION GAP 4 mmol/L (5-15); CALCIUM 6.8 mg/dL (8.5-10.1); CHLORIDE 106 mmol/L (98-107)
[2020-05-12 06:10] LABS: ALANINE AMINOTRANSFERASE 13 U/L (12-78); ALKALINE PHOSPHATASE 77 U/L (45-117); BILIRUBIN,TOTAL 0.2 mg/dL (0.2-1.0); CREATININE 0.38 mg/dL (0.55-1.02)
[2020-05-12 06:56] LABS: MEAN CORPUSCULAR HEMOGLOBIN 29.9 pg (27.0-34.8); MEAN CORPUSCULAR HGB CONC 31.6 g/dL (32.4-35.8); MEAN PLATELET VOLUME 8.2 fL (7.4-10.4); PLATELET COUNT 584 x10^3/uL (130-400); RED BLOOD COUNT 2.97 x10^6/uL (3.82-5.3); RED CELL DISTRIBUTION WIDTH 20.3 % (9.6-15.2)
[2020-05-12 07:22] VITALS: BP 96/67
[2020-05-12 07:22] LABS: MD YES
[2020-05-12 07:28] LABS: <PLATELET ESTIMATE> INCREASED; ANISOCYTOSIS 1+; BAND#(MANUAL) 0.04 x10^3/uL; BANDS%(MANUAL) 2 % (0-7); BASOPHILLIC STIPPLING 1+; LYMPH#(MANUAL) 0.46 x10^3/uL (1-3.4); LYMPHS% (MANUAL) 24 % (22-44); MONOS#(MANUAL) 0.34 x10^3/uL (0.3-2.7); MONOS% (MANUAL) 18 % (2-9); PAPPENHEIMER BODIES 1+; POLYCHROMASIA 1+; SEG#(MANUAL) 1.06 x10^3/uL (1.8-6.8); SEGS% (MANUAL) 56 % (42-75)
[2020-05-12 07:29] LABS: <PLT MORPHOLOGY> NORMAL PLT MORPH
[2020-05-12] MEDS ORDERED: MAGNESIUM SULFATE PMX 2GM/50ML 50 ML IV ONE ×2 (07:30→18:00)
[2020-05-12] MEDS: BISACODYL 10 MG SUPP PR SCH ×2 (08:04→15:55)
[2020-05-12] MEDS: LEVETIRACETAM 500 MG in SODIUM CHLORIDE 0.9% 100 ML IV SCH ×2 (10:51→22:23)
[2020-05-12] MEDS: D5%-0.45NACL+KCL 20MEQ 1,000 ML IV SCH (11:51)
[2020-05-12 13:03] VITALS: BP 110/73
[2020-05-12 18:41] VITALS: BP 103/73
[2020-05-13 00:24] VITALS: BP 90/66
[2020-05-13] MEDS: D5%-0.45NACL+KCL 20MEQ 1,000 ML IV SCH ×3 (00:27→22:57)
[2020-05-13 00:48] VITALS: BP 102/75
[2020-05-13] MEDS: ONDANSETRON 2MG/ML, 2ML IVPush PRN ×3 (03:57→18:55)
[2020-05-13] MEDS: morphine SULFATE 10 MG/ML, 1ML IVPush PRN ×4 (03:58→19:54)
[2020-05-13] MEDS: HEPARIN 5,000 UNITS/ML, 1ML SQ SCH ×3 (06:20→21:58)
[2020-05-13 06:23] LABS: ALANINE AMINOTRANSFERASE 12 U/L (12-78); ALBUMIN 1.3 g/dL (3.4-5.0); ANION GAP 4 mmol/L (5-15); CHLORIDE 109 mmol/L (98-107); CREATININE 0.43 mg/dL (0.55-1.02)
[2020-05-13 06:25] LABS: ALKALINE PHOSPHATASE 86 U/L (45-117); BILIRUBIN,TOTAL 0.1 mg/dL (0.2-1.0)
[2020-05-13 06:48] LABS: MEAN CORPUSCULAR HGB CONC 31.9 g/dL (32.4-35.8); MEAN PLATELET VOLUME 7.9 fL (7.4-10.4); PLATELET COUNT 566 x10^3/uL (130-400); RED BLOOD COUNT 3.13 x10^6/uL (3.82-5.3); RED CELL DISTRIBUTION WIDTH 21.7 % (9.6-15.2)
[2020-05-13 06:49] LABS: MD YES
[2020-05-13 06:53] LABS: ANISOCYTOSIS 1+; BAND#(MANUAL) 0.27 x10^3/uL; BANDS%(MANUAL) 9 % (0-7); LYMPH#(MANUAL) 0.51 x10^3/uL (1-3.4); LYMPHS% (MANUAL) 17 % (22-44); METAMYELOCYTES# (MANUAL) 0.03 x10^3/uL (0-0); METAMYELOCYTES% (MANUAL) 1 % (0-1); MONOS#(MANUAL) 0.66 x10^3/uL (0.3-2.7); MONOS% (MANUAL) 22 % (2-9); MYELOCYTES# (MANUAL) 0.03 x10^3/uL (0-0); MYELOCYTES% (MANUAL) 1 % (0-0); POLYCHROMASIA 1+; SEGS% (MANUAL) 50 % (42-75)
[2020-05-13 06:54] LABS: PAPPENHEIMER BODIES 1+
[2020-05-13 06:56] LABS: <PLATELET ESTIMATE> INCREASED; LARGE PLATELETS 1+
[2020-05-13 07:22] VITALS: BP 110/80
[2020-05-13] MEDS: BISACODYL 10 MG SUPP PR SCH (11:07)
[2020-05-13] MEDS: LEVETIRACETAM 500 MG in SODIUM CHLORIDE 0.9% 100 ML IV SCH ×2 (11:07→21:58)
[2020-05-13 12:25] VITALS: BP 94/64
[2020-05-13 19:44] VITALS: BP 107/76
[2020-05-14] MEDS: ONDANSETRON 2MG/ML, 2ML IVPush PRN ×2 (02:07→08:06)
[2020-05-14] MEDS: morphine SULFATE 10 MG/ML, 1ML IVPush PRN ×2 (02:13→06:20)
[2020-05-14 02:28] VITALS: BP 112/80
[2020-05-14 04:48] LABS: MEAN CORPUSCULAR HEMOGLOBIN 31.6 pg (27.0-34.8); MEAN PLATELET VOLUME 8.1 fL (7.4-10.4); PLATELET COUNT 547 x10^3/uL (130-400); RED BLOOD COUNT 3.04 x10^6/uL (3.82-5.3); RED CELL DISTRIBUTION WIDTH 19.6 % (9.6-15.2)
[2020-05-14 04:53] LABS: ALBUMIN 1.2 g/dL (3.4-5.0); ANION GAP 4 mmol/L (5-15); CHLORIDE 107 mmol/L (98-107)
[2020-05-14 04:57] LABS: ALANINE AMINOTRANSFERASE 13 U/L (12-78); ALKALINE PHOSPHATASE 98 U/L (45-117); BILIRUBIN,TOTAL 0.2 mg/dL (0.2-1.0); CREATININE 0.48 mg/dL (0.55-1.02); TOTAL PROTEIN 4.2 g/dL (6.4-8.2)
[2020-05-14 05:24] LABS: MD YES
[2020-05-14 05:26] LABS: BAND#(MANUAL) 0.54 x10^3/uL; BANDS%(MANUAL) 12 % (0-7); LYMPH#(MANUAL) 1.22 x10^3/uL (1-3.4); LYMPHS% (MANUAL) 27 % (22-44); MONOS#(MANUAL) 0.45 x10^3/uL (0.3-2.7); MONOS% (MANUAL) 10 % (2-9); SEGS% (MANUAL) 51 % (42-75)
[2020-05-14 05:27] LABS: <PLATELET ESTIMATE> INCREASED; <PLT MORPHOLOGY> NORMAL PLT MORPH; ANISOCYTOSIS 1+; POLYCHROMASIA 1+
[2020-05-14] MEDS: HEPARIN 5,000 UNITS/ML, 1ML SQ SCH (06:12)
[2020-05-14 07:40] VITALS: BP 114/82
[2020-05-14] MEDS: BISACODYL 10 MG SUPP PR SCH (08:07)
[2020-05-14] MEDS: LEVETIRACETAM 500 MG in SODIUM CHLORIDE 0.9% 100 ML IV SCH ×2 (10:00→21:45)
[2020-05-14] MEDS: LORazepam 2 MG/ML, 1ML IVPush PRN ×3 (10:10→20:55)
[2020-05-14] MEDS: D5%-0.45NACL+KCL 20MEQ 1,000 ML IV SCH (11:01)
[2020-05-14 13:15] VITALS: BP 94/70
[2020-05-14 19:54] VITALS: BP 114/85
[2020-05-15 01:26] VITALS: BP 108/69
[2020-05-15] MEDS: LORazepam 2 MG/ML, 1ML IVPush PRN ×2 (01:37→13:33)
[2020-05-15 07:45] VITALS: BP 103/74
[2020-05-15] MEDS: D5%-0.45NACL+KCL 20MEQ 1,000 ML IV SCH ×2 (08:18→08:19)
[2020-05-15] MEDS: BISACODYL 10 MG SUPP PR SCH (09:00)
[2020-05-15] MEDS: LEVETIRACETAM 500 MG in SODIUM CHLORIDE 0.9% 100 ML IV SCH (09:43)
[2020-05-15] MEDS ORDERED: BISACODYL 10 MG SUPP PR PRN (10:30)
== END 2020-05-15 14:42 | disposition hospice, inpatient (51) | DRG 388 ==
LOC: ED 19:18 → EDIP 19:52 → 4NW 20:54
PROVIDERS: ADMIT Family Medicine; ATTEND Family Medicine
DX: K56.609 Unspecified intestinal obstruction, unspecified as to partial versus complete obstruction (principal); E43 Unspecified severe protein-calorie malnutrition; I10 Essential (primary) hypertension; G40.909 Epilepsy, unspecified, not intractable, without status epilepticus; Z88.0 Allergy status to penicillin; E89.0 Postprocedural hypothyroidism; Z68.21 Body mass index [BMI] 21.0-21.9, adult; D64.9 Anemia, unspecified; K59.09 Other constipation; D70.1 Agranulocytosis secondary to cancer chemotherapy; T45.1X5A Adverse effect of antineoplastic and immunosuppressive drugs, initial encounter; Y92.89 Other specified places as the place of occurrence of the external cause
CPT/HCPCS: 36415; 71045; 71275; 74018; 74177; 80048; 80053; 81001; 83690; 83735; 84100; 85025; 85610; 85730; 93005; G0378; J1644; J1953; J2405; Q9967; J2060; J2270; J3475; J3480; J7030